=== PATIENT | male | born 1945 | race Caucasian/White ===

== ENCOUNTER 2019-08-22 15:54 | Inpatient (IN) | payer OTHER ==
[~2019-08-22] VITALS: Ht 177.8 cm; Wt 118.8 kg
[~2019-08-22 15:54] MED LIST: ASPIRIN EC81 M1 PO; ASPIRIN81 M2 PO; ATORVASTATIN CA20 MG PO; COLACE 100 MG100 MG PO; FINASTERIDE5 MG PO; FISH OIL 1,0001 EAC5 PO; FISH OIL 1,001000 M2 PO; FLAGYL500 MG PO; LEVAQUIN 500 M500 M4 PO; LIPITOR 20 MG T20 M1 PO; MULTI VITAMIN1 EACH PO; NIASPAN 500 MG500 M1 PO; NORCO 5-325 TA1 EACH PO; PAIN & FEVER325 MG PO; SENNA; TAMSULOSIN HCL0.4 MG PO; TOPROL XL50 MG; UNICOMPLEX M TA1 TA1 PO
[2019-08-22 15:55] VITALS: BP 192/84
[2019-08-22 16:43] LABS: ABSOLUTE BASOPHILS 0.1 thou/uL (0.0-0.2); ABSOLUTE EOSINOPHILS 0.2 thou/uL (0.0-0.7); ABSOLUTE LYMPHOCYTES 2.9 thou/uL (0.8-5.3); ABSOLUTE MONOCYTES 0.9 thou/uL (0.0-1.2); ABSOLUTE NEUTROPHILS 4.8 thou/uL (1.6-8.1); BASOPHILS 0.8 %; HEMATOCRIT 39.2 % (42.0-52.0); HEMOGLOBIN 13.8 gm/dL (14.0-18.0); LYMPHOCYTES 32.9 %; MCH 33.6 pg (26.0-34.0); MCHC 35.2 g/dL (28.0-37.0); MCV 95.5 fL (80.0-100.0); MONOCYTES 10.7 %; NUCLEATED RBCS 0 /100WBC; PLATELET COUNT* 147 thou/uL (150-400); POLYS 53.6 %; RDW-CV 13.1 % (10.5-14.5); WBC 8.9 thou/uL (4.0-11.0)
[2019-08-22 16:49] LABS: CALCIUM 9.5 mg/dL (8.5-10.1); CREATININE 0.9 mg/dL (0.6-1.3)
[2019-08-22 16:51] LABS: INR 1.1; PROTIME 11.4 Seconds (9.20-11.50)
[2019-08-22 17:00] LABS: ALBUMIN 3.8 g/dL (3.4-5.0); TOTAL BILIRUBIN 0.6 mg/dL (<0.1-1.0); TOTAL PROTEIN 7.1 g/dL (6.4-8.2)
[2019-08-22 19:03] LABS: BE 0.9 mmol/L (-2 to +3); PCO2 38.7 mmHg (35.0-45.0); pH 7.429 (7.340-7.450)
[2019-08-22 19:56] VITALS: BP 160/85
[2019-08-22 21:00] VITALS: BP 170/85
[2019-08-23] VITALS: BP 148/67
[2019-08-23 04:00] VITALS: BP 139/65
[2019-08-23 05:07] LABS: ANION GAP 7 mmol/L (7-16); BUN 14 mg/dL (7-18); CALCIUM 8.6 mg/dL (8.5-10.1); CHLORIDE 106 mmol/L (98-107); CHOLESTEROL 112 mg/dL (<200); CO2 29 mmol/L (21-32); CREATININE 0.7 mg/dL (0.6-1.3); GLUCOSE 98 mg/dL (70-99); HDL CHOLESTEROL 45 mg/dL (>40); LDL CHOLESTEROL 54 mg/dL (<100); MAGNESIUM 1.9 mg/dL (1.8-2.4); POTASSIUM 4.3 mmol/L (3.5-5.1); SODIUM 142 mmol/L (136-145); TC:HDL 2.5 Ratio (Not establshd); TRIGLYCERIDE 66 mg/dL (<150); VLDL 13 mg/dL (<40)
[2019-08-23 05:21] LABS: SERUM ASSESSMENT CLEAR
[2019-08-23 08:00] VITALS: BP 159/90
[2019-08-23 11:29] VITALS: BP 123/67
[2019-08-23 13:53] VITALS: BP 123/67
--- NOTE | 2019-08-23 14:27 | EKG ---
[place] [address] ELECTROCARDIOGRAM REPORT Name: ELAINE GUEVARA Room: [address] ADM IN M.R.#: [id number] Admission: 08/22/19 Attend Phys: Salo Mullen MD Discharge: Date of : 45 Report #: [id number] THIS REPORT FOR: //name// [facility] ED Test Date: 2019-08-22 Test Time: 16:03:52 Pat Name: ELAINE GUEVARA Department: Room: [facility] Gender: M Brick Tender: : 1945 Requested By: Elena Spears Order Number: [id number] MD: Víctor Morris Measurements Intervals [place] Rate: 86 P: 46 NV: 157 QRS: 17 QRSD: 91 T: 31 QT: 359 QTc: 430 Interpretive Statements Sinus rhythm Abnormal R-wave progression, early transition Compared to ECG 11/22/2014 18:48:43 No significant changes Electronically Signed On 08-23-2019 14:27:45 CDT by Víctor Morris [email or web address] <ELECTRONICALLY SIGNED> By: Víctor Morris MD, [facility] 08/23/19 1427 1603 1603 Víctor Morris MD, [facility] /EPI
[2019-08-23 14:33] VITALS: BP 123/67
--- NOTE | 2019-08-24 11:06 | CON ---
[facility] [address] [place] [address] CONSULTATION Name: ISMAELELAINE D Room: [address]#: [id number] Admission: 08/22/19 Attend Phys: Salo Mullen MD Discharge: 08/23/19 Date of : 45 Report #: [id number] THIS REPORT FOR: //name// CC: Salo Wayne DO ____ ____ DATE OF SERVICE: 08/23/2019 INDICATION: Shortness of breath. History of coronary disease. HISTORY OF PRESENT ILLNESS: The patient is a very pleasant 74-year-old gentleman with 4-vessel coronary artery bypass grafting approximately 13 years ago. He was scheduled to have a noninvasive stress test yesterday. On arrival, he was noted to be significantly hypertensive and complained of shortness of breath. He did not have chest pain. He was brought to the Emergency Room and then ultimately admitted to the hospital for further treatment. The patient's cardiac enzymes have been unremarkable. EKG shows sinus rhythm without significant ST or T-wave abnormality. The patient is presently asymptomatic. Blood pressure and heart rate improved after admission to the hospital. PAST MEDICAL HISTORY: 1. Coronary artery disease. 2. Hypertension. 3. Hyperlipidemia. 4. History of prostate cancer. PAST SURGICAL HISTORY: 1. Four-vessel bypass. 2. Cholecystectomy. FAMILY HISTORY: Noncontributory. SOCIAL HISTORY: The patient is . He does factory work. He drinks half a pint of alcohol weekly. He does not smoke. ALLERGIES: PENICILLIN. HOME MEDICATIONS: Aspirin 325 mg daily, atorvastatin 20 mg at bedtime, finasteride 5 mg at bedtime, metoprolol succinate 100 mg at bedtime, Flomax 0.4 mg at bedtime. REVIEW OF SYSTEMS: A 14-point review of systems is positive for erectile dysfunction, cough, asthma, dyspnea on exertion, orthopnea, dysuria, history of prostate cancer, arthritis. He wears glasses. He has decreased hearing and [facility] [address] [place] [address] CONSULTATION Name: ELAINE GUEVARA Room: [address]#: [id number] Admission: 08/22/19 Attend Phys: Salo Mullen MD Discharge: 08/23/19 Date of : 45 Report #: [id number] dentures. Otherwise, 14-point review of systems unremarkable. PHYSICAL EXAMINATION: VITAL SIGNS: Blood pressure 123/67, pulse 76. GENERAL: This is a pleasant, moderately obese white male, in no distress. Mood and affect appropriate. HEENT: The patient is wearing glasses. Extraocular muscles intact. Mucous membranes moist. NECK: Shows no jugular venous distention. CHEST: Reveals slight wheezing over the upper airways with diminished expiration. I do not appreciate rales. CARDIOVASCULAR: Reveals a regular rhythm with a soft 1-2/6 systolic ejection murmur. I do not appreciate a gallop. ABDOMEN: Reveals a protuberant abdomen, soft and nontender. EXTREMITIES: Shows no edema. Peripheral pulses 2+ and easily palpable. SKIN: Warm and dry. LABORATORY DATA: A 12-lead EKG shows sinus rhythm without acute ST or T-wave abnormality. Labs are reviewed. Troponins less than 0.06 on 3 separate occasions. IMPRESSION AND RECOMMENDATIONS: 1. Coronary artery disease, presently stable. The patient asked to adjust dosing of his metoprolol succinate to half a tablet twice daily. I have made no other adjustments to his medications at this time. 2. Dyslipidemia. Continue atorvastatin with goal LDL of 70 or less. 3. Hypertension. Blood pressure adequately controlled at present. I suspect his hypertension was due to him holding his beta dale for his stress test. At this point in time, the patient appears stable for discharge with followup with outpatient, Lexiscan, stress testing. Would not recommend holding beta dale prior to stress test. <ELECTRONICALLY SIGNED> By: Víctor Morris MD, FACC 08/24/19 1106 1246 1407Micgonzalez Morris MD, FACC /nt
== END 2019-08-23 14:29 | disposition home or self-care (01) | DRG 310 ==
LOC: M.2W 18:38 → M.TBA-ER 18:38 → M.2W 20:47
PROVIDERS: Personal Emergency Response Attendant; ADMIT Internal Medicine
PROC: 3E0234Z Introduction of Serum, Toxoid and Vaccine into Muscle, Percutaneous Approach (ICD-10-PCS; principal; 2019-08-23)
DX: R00.0 Tachycardia, unspecified (principal); T50.995A Adverse effect of other drugs, medicaments and biological substances, initial encounter; I16.0 Hypertensive urgency; I10 Essential (primary) hypertension; E78.5 Hyperlipidemia, unspecified; I25.10 Atherosclerotic heart disease of native coronary artery without angina pectoris; M19.90 Unspecified osteoarthritis, unspecified site; E78.00 Pure hypercholesterolemia, unspecified; Z90.49 Acquired absence of other specified parts of digestive tract; Z79.82 Long term (current) use of aspirin; Z79.899 Other long term (current) drug therapy; Z95.1 Presence of aortocoronary bypass graft; Z85.46 Personal history of malignant neoplasm of prostate; Z88.0 Allergy status to penicillin; Z87.891 Personal history of nicotine dependence; Z23 Encounter for immunization

== ENCOUNTER 2021-03-14 16:38 | Inpatient (IN) | payer OTHER ==
[~2021-03-14] VITALS: Ht 177.8 cm; Wt 118.4 kg
[2021-03-14 16:53] VITALS: BP 110/72
[2021-03-14] MEDS ORDERED: SINGULAIR 10 MG10 M1 PO (17:22)
[2021-03-14] MEDS ORDERED: TOPROL XL100 MG PO (17:22)
[2021-03-14] MEDS ORDERED: SYMBICORT80 MCG/4.1 (17:22)
[2021-03-14 18:19] LABS: ABSOLUTE BASOPHILS 0.1 thou/uL (0.0-0.2); ABSOLUTE EOSINOPHILS 0.2 thou/uL (0.0-0.7); ABSOLUTE LYMPHOCYTES 2.6 thou/uL (0.8-5.3); ABSOLUTE MONOCYTES 1.4 thou/uL (0.0-1.2); ABSOLUTE NEUTROPHILS 6.4 thou/uL (1.6-8.1); BASOPHILS 0.6 %; EOSINOPHILS 1.4 %; HEMATOCRIT 39.9 % (42.0-52.0); HEMOGLOBIN 13.9 gm/dL (14.0-18.0); LYMPHOCYTES 24.7 %; MCHC 34.8 g/dL (28.0-37.0); MCV 94.8 fL (80.0-100.0); MONOCYTES 12.9 %; MPV 7.3 fl. (7.2-11.1); NUCLEATED RBCS 0 /100WBC; PLATELET COUNT* 148 thou/uL (150-400); POLYS 60.4 %; RBC 4.21 mil/uL (4.50-6.00); RDW-CV 14.1 % (10.5-14.5); WBC 10.7 thou/uL (4.0-11.0)
[2021-03-14 19:22] LABS: APTT 26.2 Seconds (25.0-31.3); INR 1.2; PROTIME 12.3 Seconds (9.20-11.50)
[2021-03-14 19:27] LABS: CALCIUM 8.6 mg/dL (8.5-10.1); CREATININE 0.7 mg/dL (0.6-1.3); POTASSIUM 4.7 mmol/L (3.5-5.1)
[2021-03-14 19:43] LABS: ALBUMIN 2.9 g/dL (3.4-5.0); MAGNESIUM 1.9 mg/dL (1.8-2.4); TOTAL BILIRUBIN 0.9 mg/dL (<0.1-1.0)
[2021-03-14 21:47] LABS: URINE BILIRUBIN NEGATIVE (Negative); URINE BLOOD 1+ (Negative); URINE CLARITY CLEAR; URINE COLOR YELLOW; URINE GLUCOSE-RANDOM NEGATIVE (Negative); URINE KETONES 1+ (Negative); URINE LEUKOCYTES-REFLEX NEGATIVE (Negative); URINE NITRITE-REFLEX NEGATIVE (Negative); URINE PROTEIN NEGATIVE (Negative); URINE UROBILINOGEN 0.2 E.U./dl (0.2-1.0)
[2021-03-14 21:54] LABS: MUCUS None Seen strn/LPF (None Seen); SQUAMOUS NONE SEEN /LPF (0-3)
[2021-03-14 21:55] LABS: CRYSTALS None Seen /LPF (None Seen); HYALINE CASTS 0-3 Few /LPF (None Seen); URINE RBC 0-2 Rare /HPF (0-2); URINE WBC-REFLEX 0-5 Rare /HPF (0-5)
[2021-03-14 21:56] LABS: BACTERIA-REFLEX None Seen /HPF (None Seen)
[2021-03-15] VITALS (7 sets, daily range): BP systolic 103–140; BP diastolic 53–76
--- NOTE | 2021-03-15 12:48 | EKG ---
[place] [address] ELECTROCARDIOGRAM REPORT Name: SHANNON GUEVARAELAINE D Room: [address] ADM IN M.R.#: [id number] Admission: 03/14/21 Attend Phys: Sheng Ling, Discharge: Date of : 45 Date of Service: 03/14/211816 Report #: [id number] THIS REPORT FOR: //name// [facility] ED Test Date: 2021-03-14 Test Time: 18:17:16 Pat Name: ELAINE GUEVARA Department: Room: [facility] Gender: M Dietary Tech: ROSALINDA : 1945 Requested By: Rena Green Order Number: [id number] MD: Sohail Claudio Measurements Intervals [place] Rate: 118 P: CO: QRS: 29 QRSD: 90 T: 9 QT: 349 QTc: 490 Interpretive Statements Atrial fibrillation Borderline prolonged QT interval Compared to ECG 08/22/2019 16:03:52 Sinus rhythm no longer present Electronically Signed On 03-15-2021 12:47:53 CDT by Sohail Claudio [email or web address] <ELECTRONICALLY SIGNED> By: Sohail Claudio MD, [facility] 03/15/21 1247 16 16 Sohail Claudio MD, [facility] /EPI
--- NOTE | 2021-03-15 14:21 | NUR ---
PT LIVES HOME WITH . PT HAS 0 DMES. PT IS INDEPENDENT W/ADLS. PT DENEIS HX WITH HH OR SNF. CM TO CONT TO FOLLOW.
[2021-03-15] MEDS ORDERED: PROAIR HFA8.5 GM INH (17:00)
--- NOTE | 2021-03-15 17:32 | 2DMMODE ---
[place] [address] 2 D/M-MODE ECHOCARDIOGRAM Name: ELAINE GUEVARA Ray Room: [address] IN [facility]#: [id number] Admission: 03/14/21 Attend Phys: Sheng Ling, Discharge: Date of : 45 Date of Service: 03/15/21 1731 Report #: [id number] THIS REPORT FOR: cc: Lisy Cullen Maggie M. DO Liston, Michael J. MD [facility] ~ APPROVED REPORT Study performed: 03/15/2021 13:56:42 EXAM: Comprehensive 2D, Doppler, and color-flow Echocardiogram Patient Location: In-Patient Room #: [facility] BSA: 2.36 HR: 68 bpm BP: 122/62 mmHg Other Information Study Quality: Good Indications Atrial Fibrillation 2D Dimensions IVSd: 15.65 (7-11mm) LVOT Diam: 20.61 (18-24mm) LVDd: 36.82 mm PWd: 14.45 (7-11mm) Ascending Ao: 32.52 (22-36mm) LVDs: 34.49 (25-40mm) Aortic Root: 28.90 mm Volumes Left Atrial Volume (Systole) LA ESV Index: 15.20 mL/m2 Aortic Valve AoV Peak Uriel.: 1.83 m/s AO Peak Gr.: 13.38 mmHg LVOT Max P.77 mmHg AO Mean Gr.: 8.03 mmHg LVOT Mean P.80 mmHg LVOT Max V: 1.39 m/s AO V2 VTI: 38.68 cm LVOT Mean V: 0.89 m/s JERAMIE (VTI): 2.35 cm2 LVOT V1 VTI: 27.21 [place] [address] 2 D/M-MODE ECHOCARDIOGRAM Name: ELAINE GUEVARA Room: [address] IN .#: [id number] Admission: 03/14/21 Attend Phys: Sheng Ling, Discharge: Date of : 45 Date of Service: 03/15/21 1731 Report #: [id number] E/A Ratio: 1.26 MV Decel. Time: 194.76 ms MV E Max Uriel.: 0.77 m/s MV PHT: 56.48 ms MVA (PHT): 3.90 cm2 TDI E/Lateral E': 11.00 E/Medial E': 8.56 Medial E' Uriel.: 0.09 m/s Lateral E' Uriel.: 0.07 m/s Pulmonary Valve PV Peak Uriel.: 1.14 m/s PV Peak Gr.: 5.17 mmHg Tricuspid Valve RAP Estimate: 5.00 mmHg TR Peak Gr.: 22.26 mmHg RVSP: 27.26 mmHg PA Pressure: 27.26 mmHg Left Ventricle The left ventricle is normal size. There is normal LV segmental wall motion. Mild concentric left ventricular hypertrophy. Left ventricular systolic function is normal. LVEF is 60-65%. Transmitral Doppler flow pattern suggests impaired LV relaxation. Right Ventricle The right ventricle is normal size. The right ventricular systolic function is normal. Atria Left atrium is mildly dilated. The right atrium size is normal. Aortic Valve Mild aortic valve sclerosis. Mild aortic regurgitation. There is no aortic valvular stenosis. Mitral Valve The mitral valve is normal in structure. Mild mitral regurgitation. No evidence of mitral valve stenosis. Tricuspid Valve The tricuspid valve is normal in structure. Mild tricuspid regurgitation[place] [address] 2 D/M-MODE ECHOCARDIOGRAM Name: ELAINE GUEVARA Room: [address]#: [id number] Admission: 03/14/21 Attend Phys: Sheng Ling, Discharge: Date of : 45 Date of Service: 03/15/21 1731 Report #: [id number] The pulmonary valve is normal in structure. There is no pulmonic valvular regurgitation. Great Vessels The aortic root is normal in size. IVC is normal in size and collapses >50% with inspiration. Pericardium There is no pericardial effusion. <Conclusion> The left ventricle is normal size. Mild concentric left ventricular hypertrophy. Left ventricular systolic function is normal. LVEF is 60-65%. Transmitral Doppler flow pattern suggests impaired LV relaxation. Left atrium is mildly dilated. Mild aortic valve sclerosis. Mild aortic regurgitation. Mild mitral regurgitation. Mild tricuspid regurgitation. IVC is normal in size and collapses >50% with inspiration. <ELECTRONICALLY SIGNED> By: Víctor Morris MD, [facility] 03/15/21 173 30 30 Víctor Morris MD, FACC /INF
--- NOTE | 2021-03-15 17:48 | NUR ---
Pt converted from Afib to SR late this morning. Diltiazem gtt dc'd; started on amiodarone and Xarelto. Pt pleasant and cooperative. VSS. States he had not felt well for past two days, but feels much better today. Will continue to monitor.
[2021-03-16 00:05] VITALS: BP 137/61
[2021-03-16 04:44] LABS: CALCIUM 8.8 mg/dL (8.5-10.1); CREATININE 0.8 mg/dL (0.6-1.3); POTASSIUM 4.8 mmol/L (3.5-5.1)
[2021-03-16 04:49] VITALS: BP 134/68
[2021-03-16 04:50] LABS: ABSOLUTE LYMPHOCYTES 1.3 thou/uL (0.8-5.3); ABSOLUTE MONOCYTES 1.1 thou/uL (0.0-1.2); ABSOLUTE NEUTROPHILS 11.6 thou/uL (1.6-8.1); HEMATOCRIT 36.7 % (42.0-52.0); HEMOGLOBIN 12.5 gm/dL (14.0-18.0); MCH 32.4 pg (26.0-34.0); MCHC 34.1 g/dL (28.0-37.0); MCV 95.1 fL (80.0-100.0); MONOCYTES 7.7 %; NUCLEATED RBCS 0 /100WBC; PLATELET COUNT* 157 thou/uL (150-400); POLYS 83.3 %; RBC 3.86 mil/uL (4.50-6.00)
--- NOTE | 2021-03-16 06:13 | NUR ---
ASSUMED PT CARE AT APPROX. 1915. PT IS A/OX4. VSS. PT IS TRACING SR ON TELEMONITOR. PT IS ON RA. PT RESTED DURING THE NIGHT. NO C/O VOICED. FALL PRECAUTIONS IN PLACE FOR SAFETY. CALL LIGHT WITHIN REACH. HOURLY ROUNDS COMPLETE CHARTED. WILL CONT. TO MONITOR.
[2021-03-16 08:00] VITALS: BP 148/64
[2021-03-16] MEDS ORDERED: PACERONE 200 M200 M1 PO (09:10)
[2021-03-16] MEDS ORDERED: XARELTO20 MG PO (09:10)
[2021-03-16 10:01] VITALS: BP 148/64
--- NOTE | 2021-03-16 14:26 | NUR ---
PLAN FOR THE PT TO D/C HOME TODAY WITH SELF-CARE. NO CM D/C PLANNING NEEDS ANTICIAPTED. CM WILL REMAIN AVAILABLE TO ASSIST AND FOLLOW NEEDED.
--- NOTE | 2021-03-16 14:27 | EKG ---
[place] [address] ELECTROCARDIOGRAM REPORT Name: SHANNON GUEVARAELAINE D Room: [address] DIS IN M.R.#: [id number] Admission: 03/14/21 Attend Phys: Sheng Ling, Discharge: 03/16/21 Date of : 45 Date of Service: 03/16/2116 Report #: [id number] THIS REPORT FOR: //name// [facility] Test Date: 2021-03-16 Test Time: 08:16:23 Pat Name: ELAINE GUEVARA Department: Room: [address] Gender: M Graphic Illustrator: AZUL : 1945 Requested By: Jacqueline Pickett Order Number: [id number] Mary MD: Sohail Claudio Measurements Intervals [place] Rate: 74 P: 19 MA: 170 QRS: 29 QRSD: 97 T: 30 QT: 406 QTc: 451 Interpretive Statements Sinus rhythm Abnormal R-wave progression, early transition Baseline wander in lead(s) III Compared to ECG 03/14/2021 18:17:16 Atrial fibrillation no longer present Electronically Signed On 03-16-2021 14:27:27 CDT by Sohail Claudio [email or web address] <ELECTRONICALLY SIGNED> By: Sohail Claudio MD, [facility] 03/16/21 1427 5 5 Sohail Claudio MD, FAC /EPI
== END 2021-03-16 13:15 | disposition home or self-care (01) | DRG 309 ==
LOC: M.ERS 16:38 → M.2W 21:55 → M.TBA-ER 21:55 → M.2W 03-15 00:21
PROVIDERS: Nurse Practitioner Family; ADMIT Internal Medicine; ATTEND Internal Medicine
DX: I48.20 Chronic atrial fibrillation, unspecified (principal); I50.32 Chronic diastolic (congestive) heart failure; D68.59 Other primary thrombophilia; J45.909 Unspecified asthma, uncomplicated; Z20.822 Contact with and (suspected) exposure to COVID-19; I25.10 Atherosclerotic heart disease of native coronary artery without angina pectoris; I11.0 Hypertensive heart disease with heart failure; K21.9 Gastro-esophageal reflux disease without esophagitis; E78.00 Pure hypercholesterolemia, unspecified; R12 Heartburn; E78.5 Hyperlipidemia, unspecified; Z95.1 Presence of aortocoronary bypass graft; Z90.49 Acquired absence of other specified parts of digestive tract; Z88.0 Allergy status to penicillin; Z87.891 Personal history of nicotine dependence

== ENCOUNTER → 2021-11-02 | Outpatient (CLI) | payer OTHER ==
[~2021-11-02] MED LIST changes: +PACERONE 200 M200 M1 PO; +PROAIR HFA8.5 GM INH; +SINGULAIR 10 MG10 M1 PO; +SYMBICORT80 MCG/4.1; +TOPROL XL100 MG PO; +XARELTO20 MG PO
[2021-11-02 11:54] LABS: ALBUMIN 3.6 g/dL (3.4-5.0); DIRECT BILIRUBIN 0.1 mg/dL (<0.1-0.3); TOTAL BILIRUBIN 0.6 mg/dL (<0.1-1.0); TOTAL PROTEIN 7.6 g/dL (6.4-8.2)
== END ==
LOC: M.LAB 11:20
PROVIDERS: ATTEND Internal Medicine Cardiovascular Disease
DX: I48.0 Paroxysmal atrial fibrillation (principal); I10 Essential (primary) hypertension; Z79.899 Other long term (current) drug therapy